=== PATIENT | male | born 1975 | race Caucasian/White ===

== ENCOUNTER 2017-02-07 12:38 | Emergency (ER) | payer OTHER ==
[~2017-02-07] VITALS: Ht 182.9 cm; Wt 140.0 kg
[2017-02-07 12:40] VITALS: BP 148/89; PULSE 99; RESP 20; TEMP 98.5; O2SAT 96
--- NOTE | 2017-02-07 12:44 | PD ---
Physical Exam Date Seen by Provider: Feb 07, 2017 Time Seen by Provider: 12:43 Narrative 41 yo male here for evaluation of HBP. Brought here by significant other for evaluation of this. Seen by PCP for this and prescribed amiodorne. Has had multiple syncopal episodes. Today has had chest pain, abdominal pain. BP high. Vitals are stable in triage. Awaiting bed placement. Data Data Last Documented VS Vital Signs Date Time Temp Pulse Resp B/P Pulse Ox O2 Delivery O2 Flow Rate FiO2 02/07/17 12:40 98.5 99 20 148/89 96 Room Air [facility] Medical Record Reviewed: Yes Supervised Visit with ZIYAD: No David Stone Feb 07, 2017 12:44
--- NOTE | 2017-02-07 13:28 | RADRPT ---
EXAM DATE/TIME: 02/07/2017 13:29 [place] COMPARISON: No previous studies available for comparison. INDICATIONS : Shortness of breath. MEDICAL HISTORY : Hypertension. SURGICAL HISTORY : None. ENCOUNTER: Initial ACUITY: 1 day PAIN SCORE: 0/10 LOCATION: Bilateral chest FINDINGS: PA and lateral views of the chest demonstrate the lungs to be symmetrically aerated without evidence of mass, infiltrate or effusion. The cardiomediastinal contours are unremarkable. Osseous structure s are intact. CONCLUSION: No acute disease. Milton Blake MD FACR on February 07, 2017 at 13:25 Board Certified Radiologist. This report was verified electronically.
[2017-02-07 13:39] VITALS: BP 116/71; PULSE 74
[2017-02-07 14:18] LABS: AUTOMATED NEUTROPHIL # 4.3 TH/MM3 (1.8-7.7); BASOPHIL % 0.2 % (0.0-2.0); EOSINOPHIL # 0.1 TH/MM3 (0-0.4); EOSINOPHIL % 1.8 % (0.0-4.0); HEMATOCRIT 41.9 % (39.0-51.0); HEMO FLAGS DIFF FINAL; LYMPHOCYTE # 0.7 TH/MM3 (1.0-4.8); MEAN CORPUSCULAR HEMOGLOBIN 29.1 PG (27.0-34.0); MEAN CORPUSCULAR HGB CONC 34.7 % (32.0-36.0); MONO % 7.7 % (0.0-8.0); NEUT % 77.3 % (16.0-70.0); PLATELET COUNT 148 TH/MM3 (150-450); RED BLOOD COUNT 4.99 MIL/MM3 (4.50-5.90); RED CELL DISTRIBUTION WIDTH 13.6 % (11.6-17.2); WHITE BLOOD COUNT 5.6 TH/MM3 (4.0-11.0)
[2017-02-07 14:29] LABS: ALT (GPT) 49 U/L (12-78); ANION GAP 6 MEQ/L (5-15); AST (GOT) 25 U/L (15-37); BICARBONATE 26.2 MEQ/L (21.0-32.0); BLOOD UREA NITROGEN 26 MG/DL (7-18); CHLORIDE 107 MEQ/L (98-107); GLOMERULAR FILTRATION RATE 112 ML/MIN (>89); MAGNESIUM 1.9 MG/DL (1.5-2.5); POTASSIUM 4.1 MEQ/L (3.5-5.1); SODIUM (NA) 139 MEQ/L (136-145)
[2017-02-07 14:33] LABS: ALKALINE PHOSPHATASE 80 U/L (45-117); TOTAL BILIRUBIN ADULT 0.5 MG/DL (0.2-1.0)
--- NOTE | 2017-02-07 15:08 | PD ---
HPI Chief Complaint: Cardiac Complaint Time Seen by Provider: 12:47 Travel History International Travel<30 days: No Contact w/Intl Traveler<30days: No Traveled to known affect area: No History of Present Illness HPI So 41-year-old man who presents to the emergency department complaining of elevated blood pressure and feeling sick. They report that over the past week or 2 weeks had 3 episodes of syncope. Therefore lastly he was sitting in a chair when he slumped over. Another day he was standing talking to somebody when he woke up on the ground. He went to see a new primary doctor for the first time was diagnosed with high blood pressure. He started on 5 mg of amlodipine which he started taking yesterday. This morning he woke up he had vomiting, diaphoresis, and diarrhea. He states some intermittent chest pain over the past couple weeks. At some intermittent shortness of breath as well. He otherwise had been feeling generally well and healthy before about a month or so ago. He has referrals for a stress test, and for sleep apnea test. His notes a lot of snoring, and sleeping poorly. He does endorse some daytime somnolence. History Past Medical History Narrative Medical Hypertension Tetanus Vaccination: Unknown Influenza Vaccination: No Social History Alcohol Use: No Tobacco Use: No Review of Systems Except as stated in HPI: all other systems reviewed are Neg Physical Exam Narrative GENERAL: Well-appearing 41-year-old man, no acute distress. SKIN: Focused skin assessment warm/dry. HEAD: Atraumatic. Normocephalic. CARDIOVASCULAR: Regular rate and rhythm. No murmur appreciated. RESPIRATORY: No accessory muscle use. Clear to auscultation. Breath sounds equal bilaterally. GASTROINTESTINAL: Abdomen soft, non-tender, nondistended. Hepatic and splenic margins not palpable. MUSCULOSKELETAL: No obvious deformities. No clubbing. No cyanosis. No edema. NEUROLOGICAL: Awake and alert. No obvious cranial nerve deficits. Motor grossly within normal limits. Normal speech. PSYCHIATRIC: Appropriate mood and affect; insight and judgment normal. Data Data Last Documented VS Vital Signs Date Time Temp Pulse Resp B/P Pulse Ox O2 Delivery O2 Flow Rate FiO2 02/07/17 13:39 74 116/71 02/07/17 13:39 18 99 Room Air 02/07/17 12:40 98.5 Orders Electrocardiogram (02/07/17 13:08) Complete Blood Count With Diff (6/28/17 13:08) Comprehensive Metabolic Panel (02/07/17 13:08) Magnesium (Mg) (02/07/17 13:08) Troponin I (02/07/17 13:08) Ecg Monitoring (02/07/17 13:08) Iv Access Insert/Monitor (02/07/17 13:08) Oximetry (02/07/17 13:08) Oxygen Administration (02/07/17 13:08) Chest, Pa & Lat (02/07/17 13:08) Labs Laboratory Tests Test 02/07/17 13:35 White Blood Count 5.6 TH/MM3 Red Blood Count 4.99 MIL/MM3 Hemoglobin 14.5 GM/DL Hematocrit 41.9 % Mean Corpuscular Volume 84.0 FL Mean Corpuscular Hemoglobin 29.1 PG Mean Corpuscular Hemoglobin 34.7 % Concent Red Cell Distribution Width 13.6 % Platelet Count 148 TH/MM3 Mean Platelet Volume 8.7 FL Neutrophils (%) (Auto) 77.3 % Lymphocytes (%) (Auto) 13.0 % Monocytes (%) (Auto) 7.7 % Eosinophils (%) (Auto) 1.8 % Basophils (%) (Auto) 0.2 % Neutrophils # (Auto) 4.3 TH/MM3 Lymphocytes # (Auto) 0.7 TH/MM3 Monocytes # (Auto) 0.4 TH/MM3 Eosinophils # (Auto) 0.1 TH/MM3 Basophils # (Auto) 0.0 TH/MM3 CBC Comment DIFF FINAL Differential Comment Sodium Level 139 MEQ/L Potassium Level 4.1 MEQ/L Chloride Level 107 MEQ/L Carbon Dioxide Level 26.2 MEQ/L Anion Gap 6 MEQ/L Blood Urea Nitrogen 26 MG/DL Creatinine 0.77 MG/DL Estimat Glomerular Filtration 112 ML/MIN Rate Random Glucose 85 MG/DL Calcium Level 9.1 MG/DL Magnesium Level 1.9 MG/DL Total Bilirubin 0.5 MG/DL Aspartate Amino Transf 25 U/L (AST/SGOT) Alanine Aminotransferase 49 U/L (ALT/SGPT) Alkaline Phosphatase 80 U/L Troponin I LESS THAN 0.02 NG/ML Total Protein 7.2 GM/DL Albumin 4.1 GM/DL MDM Medical Decision Making Medical Screen Exam Complete: Yes Emergency Medical Condition: Yes Interpretation(s) My review of EKG: Normal sinus rhythm at a rate of 92, normal axis, normal intervals, no acute ischemia. LABS: CBC is unremarkable. CMP is remarkable for mildly elevated BUN. Troponin negative. Chest x-ray: Negative Differential Diagnosis Sleep apnea, ACS, hypertension, arrhythmia, other Narrative Course Medical decision making INITIAL: This is a well 41 year-old man who presents to the emergency department complaining of high blood pressure. At episode this morning with nausea vomiting diarrhea clamminess and lightheadedness. He's had 2 episodes of syncope. It seems like a lot of his symptoms could be related to sleep apnea. The diarrhea and vomiting this morning her new and not clearly explained by his other complaints. I don't think he has an arrhythmia. He has a prescription for close follow-up stress test and sleep study. I think the patient is safe to follow these outpatient studies. He just started amlodipine last night. Recommend he continue this. Diagnosis Primary Impression: Elevated blood pressure reading Additional Impression: Syncope Additional Instructions: Continue amlodipine daily as prescribed. Follow-up for stress test and sleep study as discussed. Return to the emergency department for any chest pain, any trouble breathing, any recurrent episodes of fainting, or any other new or worsening symptoms. Med/Other Pt SpecificInfo: Prescription(s) given Disposition: 01 DISCHARGE HOME Condition: Stable Luis Cervantes MD Feb 07, 2017 15:08
--- NOTE | 2017-02-08 08:08 | EKG ---
Date Performed: 02/07/2017 Time Performed: 13:32:08 PTAGE: 41 years EKG: Sinus rhythm NONSPECIFIC T-WAVE ABNORMALITY BORDERLINE ECG NO PREVIOUS TRACING DOCTOR: Kareem Vega Interpretating Date/Time 02/08/2017 08:01:44
== END 2017-02-07 15:23 | disposition home or self-care (01) ==
LOC: NEPD 12:38
DX: I10 Essential (primary) hypertension (principal); R55 Syncope and collapse; R11.2 Nausea with vomiting, unspecified; R19.7 Diarrhea, unspecified
CPT/HCPCS: 71020; 80053; 83735; 84484; 85025; 93005; 99285